=== PATIENT | female | born 1975 | race Caucasian/White ===

== ENCOUNTER → 2018-06-28 | Outpatient (CLI) | payer SELFPAY ==
[~2018-06-28] MED LIST: CEP500 PO; CET10 PO; DAR100 PO; LEV125 PO; LOR10 PO; LOR5/325 PO; PENI-22 PO; PER PO; SULF-170 PO; VITAMIN
== END ==
LOC: LAB 13:59
PROVIDERS: ATTEND Physician Assistant Medical
DX: M05.89 Other rheumatoid arthritis with rheumatoid factor of multiple sites (principal); Z79.899 Other long term (current) drug therapy
CPT/HCPCS: 36415; 86480